=== PATIENT | female | born 2000 | race Caucasian/White ===

== ENCOUNTER 2020-11-25 11:54 | Emergency (ER) | payer OTHER ==
[~2020-11-25] VITALS: Ht 172.7 cm; Wt 99.8 kg
[2020-11-25 12:30] VITALS: BP 143/83
== END 2020-11-25 12:30 | disposition home or self-care (01) ==
LOC: M.ERS 11:54
DX: S91.011A Laceration without foreign body, right ankle, initial encounter (principal); W26.8XXA Contact with other sharp object(s), not elsewhere classified, initial encounter; Y93.89 Activity, other specified; Y92.89 Other specified places as the place of occurrence of the external cause; Y99.0 Civilian activity done for income or pay